=== PATIENT | male | born 1990 | race Caucasian/White ===

== ENCOUNTER 2023-03-20 06:50 | Day surgery (SDC) | payer OTHER ==
[~2023-03-20] VITALS: Ht 175.3 cm; Wt 70.0 kg
[2023-03-20] VITALS (208 sets, daily range): BP systolic 94–150; BP diastolic 41–103
[2023-03-20 08:04] LABS: BASO% 0.2 % (0-3); EOS% 6.9 % (0-8); HEMATOCRIT 43.5 % (39.0-50.0); HEMOGLOBIN 13.9 g/dl (14.0-18.0); IMMATURE GRANULOCYTES 0.2 % (0.0-5.0); LYMPH% 41.6 % (15-41); MEAN CELL VOLUME 84.5 fL CALC (80.0-100.0); NEUT% 39.1 % (42-76); RED BLOOD COUNT 5.15 mill/uL (4.70-6.10)
[2023-03-20 08:14] LABS: ALBUMIN 4.8 g/dL (3.2-5.0); ALKALINE PHOSPHATASE 78 u/l (38-126); ANION GAP 12 (6-22 (CALC)); BILIRUBIN, TOTAL 0.4 mg/dL (0.2-1.3); BUN 22 mg/dL (9-20); BUN/CREATININE RATIO 24 (12-20 (CALC)); CARBON DIOXIDE 31 mmol/l (22-30); CHLORIDE 100 mmol/l (95-108); CREATININE 0.9 mg/dL (0.7-1.3); GFR FOR AFR.AMER. > 60 ML/MIN (>=60 (CALC)); GFR OTHER RACES > 60 ML/MIN (>=60 (CALC)); POTASSIUM 4.1 mmol/l (3.5-5.1); SGOT/AST 31 u/l (17-59); SODIUM 139 mmol/l (137-146); TOTAL PROTEIN 8.3 g/dL (6.3-8.2)
[2023-03-20] MEDS ORDERED: CLONIDINE0.1 MG PO (15:11)
[2023-03-20] MEDS ORDERED: NALTREXONE50 MG PO (15:11)
[2023-03-20] MEDS ORDERED: KLONOPIN2 MG PO (15:11)
[2023-03-21 04:07] VITALS: BP 134/59
[2023-03-21 06:01] LABS: ALBUMIN 4.5 g/dL (3.2-5.0); ALKALINE PHOSPHATASE 79 u/l (38-126); ANION GAP 13 (6-22 (CALC)); BILIRUBIN, TOTAL 0.4 mg/dL (0.2-1.3); BUN 14 mg/dL (9-20); BUN/CREATININE RATIO 18 (12-20 (CALC)); CARBON DIOXIDE 25 mmol/l (22-30); CHLORIDE 106 mmol/l (95-108); CREATININE 0.7 mg/dL (0.7-1.3); GFR FOR AFR.AMER. > 60 ML/MIN (>=60 (CALC)); GFR OTHER RACES > 60 ML/MIN (>=60 (CALC)); MAGNESIUM 2.1 mg/dL (1.6-2.3); POTASSIUM 4.1 mmol/l (3.5-5.1); SGOT/AST 31 u/l (17-59); SODIUM 140 mmol/l (137-146); TOTAL PROTEIN 7.6 g/dL (6.3-8.2)
[2023-03-21 07:19] VITALS: BP 127/38
[2023-03-21 07:24] VITALS: BP 119/86
[2023-03-21 07:39] VITALS: BP 119/86
== END 2023-03-21 17:00 | disposition home or self-care (01) | DRG 897 ==
LOC: ANR 06:50 → MS2 06:50 → ANR 07:00 → MS2 03-21 17:00
PROVIDERS: ATTEND Anesthesiology
DX: F11.20 Opioid dependence, uncomplicated (principal)
CPT/HCPCS: J0131; J2060; J2354; J3475